=== PATIENT | female | born 1995 | race Caucasian/White ===

== ENCOUNTER 2022-01-27 14:54 | Outpatient (CLI) | payer BC | END 2022-01-27 14:55 | disposition home or self-care (01) | LOC: CSHLAB 14:54 | PROVIDERS: ATTEND Obstetrics & Gynecology | DX: Z20.822 Contact with and (suspected) exposure to COVID-19 (principal) | CPT/HCPCS: 87811 ==

== ENCOUNTER 2022-01-29 13:24 | Inpatient (IN) | payer BC ==
[2022-01-31] MEDS ORDERED: Lidocaine 2% MPF 10 ML AMP (For Epidural Use) ONE (08:00)
[2022-01-31] MEDS ORDERED: Bupivacaine 0.25% HCL 30 ML VIAL ONE (08:00)
[2022-01-31] MEDS ORDERED: Lidocaine 1% (PF) 30 ML VIAL SC PRN (22:56)
[2022-01-31] MEDS ORDERED: Zolpidem Tartrate 5 MG TAB PO PRN (22:56)
[2022-01-31] MEDS ORDERED: Diphenoxylate HCl/Atropine Tablet PO PRN ×2 (22:56)
[2022-01-31] MEDS ORDERED: Butorphanol Tartrate 1 MG/ML VIAL SLOW IVP PRN (22:56)
[2022-01-31] MEDS ORDERED: HYDROcodone/Acetaminophen 5/325 mg Tablet PO PRN ×2 (22:56)
[2022-01-31] MEDS ORDERED: Promethazine HCl 25 MG/ML VIAL IM PRN (22:56)
[2022-01-31] MEDS ORDERED: Misoprostol 200 MCG TAB PR PRN (22:56)
[2022-01-31] MEDS ORDERED: Ondansetron PF 4 MG/2 ML Vial IVP PRN (22:56)
[2022-01-31] MEDS ORDERED: Ibuprofen 800 MG TAB PO PRN (22:56)
[2022-01-31] MEDS ORDERED: Lactated Ringer's 1,000 ML IV SCH (22:56)
[2022-01-31] MEDS ORDERED: NS w/ Oxytocin 30 units 500 ML IV SCH ×2 (22:56)
[2022-01-31] MEDS ORDERED: Docusate 100 MG CAP PO PRN (22:56)
[2022-01-31] MEDS ORDERED: Misoprostol 100 MCG TAB VAG SCH (22:56)
[2022-01-31] MEDS ORDERED: hydrALAZINE 20 MG/ML VIAL SLOW IVP PRN (22:56)
[2022-01-31] MEDS ORDERED: Acetaminophen 500 MG TAB PO PRN (22:56)
[2022-01-31] MEDS ORDERED: Penicillin G Potassium 5 MILL.UNITS in Sodium Chloride 0.9% 100 ML IVPB SCH (23:00)
[2022-01-31 23:01] VITALS: BMI 33.6
[2022-01-31 23:19] LABS: Mean Corpuscular HGB CONC 35.3 g/dL (32.0-36.0); Mean Corpuscular Hemoglobin 32.2 pg (27.0-33.0); Mean Corpuscular Volume 91.2 fl (81.6-98.3); Mean Platelet Volume 9.2 fl (7.4-10.4); Platelet Count 243 10x3/uL (150-450); RBC Distribution Width 13.7 % (11.5-14.5); Red Blood Cell (RBC) Count 3.73 10x6/uL (3.90-5.03); White Blood Cell (WBC) Count 8.7 10x3/uL (3.5-10.5)
[2022-02-01 00:01] LABS: Syphilis Antibody Nonreactive (Nonreactive); Syphilis Antibody Index 0.03 S/CO (<1.00 Non-Reactive)
[2022-02-01 00:03] LABS: HBSAg Index 0.26 S/CO (0-0.99); HIV (1/2) Antibody/Antigen Non-Reactive (NonReactive); HIV 1/2 INDEX 0.09 S/CO (<1.00); Hep B Surf Ag Non-Reactive S/CO (NonReactive)
[2022-02-01] MEDS: Misoprostol 100 MCG TAB VAG SCH ×2 (03:25→07:34)
[2022-02-01] MEDS: Penicillin G 2.5 MILL.units 2.5 MILL.UNITS in Premix Bag 1 BAG IVPB SCH ×4 (03:25→16:20)
[2022-02-01] MEDS ORDERED: Fentanyl 2 mcg/Bup 0.1% Cadd 100 ML ONE ×2 (09:32→15:47)
[2022-02-01] MEDS ORDERED: Promethazine HCl 25 MG/ML VIAL IM PRN (10:25)
[2022-02-01] MEDS ORDERED: ePHEDrine Sulfate 50 MG/10 ML VIAL SLOW IVP PRN (10:25)
[2022-02-01] MEDS ORDERED: Ondansetron PF 4 MG/2 ML Vial IVP PRN ×2 (10:25→21:47)
[2022-02-01] MEDS ORDERED: Acetaminophen 325 MG TAB PO PRN (10:25)
[2022-02-01] MEDS ORDERED: Moisturizing Cream (Eucerin) 113 GM JAR TOP PRN (10:25)
[2022-02-01] MEDS ORDERED: Naloxone HCl 0.4 mg/ml Vial IVP PRN ×2 (10:25)
[2022-02-01] MEDS ORDERED: Lactated Ringer's 500 ML IV PRN (10:25)
[2022-02-01] MEDS ORDERED: diphenhydrAMINE 50 MG/ML VIAL IVP PRN (10:25)
[2022-02-01] MEDS ORDERED: Communication Order-Pharmacy FS SCH (10:30)
[2022-02-01] MEDS ORDERED: Fentanyl 2 mcg/Bupivacaine 0.1% Cassette 100 ML EPIDURAL SCH (10:30)
[2022-02-01] MEDS ORDERED: Tranexamic Acid 1,000 MG/10 ML VIAL ONE (21:23)
[2022-02-01] MEDS ORDERED: Methylergonovine 0.2 MG/ML VIAL ONE (21:23)
[2022-02-01] MEDS ORDERED: Misoprostol 200 MCG TAB ONE (21:23)
[2022-02-01] MEDS ORDERED: Carboprost 250 MCG/ML AMP ONE (21:23)
[2022-02-01] MEDS ORDERED: HYDROcodone/Acetaminophen 5/325 mg Tablet PO PRN (21:47)
[2022-02-01] MEDS ORDERED: Misoprostol 200 MCG TAB VAG PRN (21:47)
[2022-02-01] MEDS ORDERED: Lanolin Ointment 7 GM TUBE TOP PRN (21:47)
[2022-02-01] MEDS ORDERED: Benzocaine-Menthol 82.5 ML CAN TOP PRN (21:47)
[2022-02-01] MEDS ORDERED: Preparation H Ointment 28 GM TUBE PR PRN (21:47)
[2022-02-01] MEDS ORDERED: hydrALAZINE 20 MG/ML VIAL SLOW IVP PRN (21:47)
[2022-02-01] MEDS ORDERED: diphenhydrAMINE 25 MG CAP PO PRN (21:47)
[2022-02-01] MEDS ORDERED: Milk Of Magnesia 30 ML UDCUP PO PRN (21:47)
[2022-02-01] MEDS ORDERED: Bisacodyl 10 MG SUPP PR PRN (21:47)
[2022-02-01] MEDS ORDERED: Witch Hazel-Glycerin 1 EACH JAR TOP PRN (21:49)
[2022-02-01] MEDS ORDERED: NS w/ Oxytocin 30 units 500 ML IV SCH (22:00)
[2022-02-02] MEDS: Ibuprofen 800 MG TAB PO SCH ×3 (01:12→16:02)
[2022-02-02 04:50] LABS: Hemoglobin 12.3 g/dL (12.0-15.5); Mean Corpuscular Hemoglobin 32.1 pg (27.0-33.0); Mean Corpuscular Volume 91.6 fl (81.6-98.3); Mean Platelet Volume 9.4 fl (7.4-10.4); Platelet Count 259 10x3/uL (150-450); RBC Distribution Width 13.8 % (11.5-14.5); Red Blood Cell (RBC) Count 3.83 10x6/uL (3.90-5.03); White Blood Cell (WBC) Count 20.2 10x3/uL (3.5-10.5)
[2022-02-02] MEDS: HYDROcodone/Acetaminophen 5/325 mg Tablet PO PRN ×3 (04:54→20:47)
[2022-02-02] MEDS: Docusate 100 MG CAP PO SCH ×2 (08:40→20:46)
[2022-02-02] MEDS: Prenatal Vitamin 1 TAB PO SCH (08:40)
[2022-02-02] MEDS ORDERED: Boostrix 0.5 ML (Tdap) VIAL IM ONE (09:00)
[2022-02-02] MEDS: Ferrous Sulfate 325 MG TAB PO SCH ×2 (13:41→17:05)
[2022-02-03] MEDS: Ibuprofen 800 MG TAB PO SCH ×4 (00:01→16:05)
[2022-02-03 08:09] VITALS: BP 103/62; TEMP 98.3
[2022-02-03] MEDS: Prenatal Vitamin 1 TAB PO SCH (08:49)
[2022-02-03] MEDS: Docusate 100 MG CAP PO SCH (08:49)
[2022-02-03] MEDS: Ferrous Sulfate 325 MG TAB PO SCH (09:26)
== END 2022-02-03 16:15 | disposition home or self-care (01) | DRG 807 ==
LOC: CSHLD 01-31 22:35 → CSHPP 02-02 00:10
PROVIDERS: ADMIT Obstetrics & Gynecology; ATTEND Obstetrics & Gynecology
PROC: 10D07Z6 Extraction of Products of Conception, Vacuum, Via Natural or Artificial Opening (ICD-10-PCS; principal; 2022-02-01)
PROC: 0KQM0ZZ Repair Perineum Muscle, Open Approach (ICD-10-PCS; 2022-02-01)
PROC: 3E0P7VZ Introduction of Hormone into Female Reproductive, Via Natural or Artificial Opening (ICD-10-PCS; 2022-02-01)
PROC: 0W8NXZZ Division of Female Perineum, External Approach (ICD-10-PCS; 2022-02-01)
DX: O99.824 Streptococcus B carrier state complicating childbirth (principal); Z37.0 Single live birth; Z3A.39 39 weeks gestation of pregnancy; Z86.16 Personal history of COVID-19; G43.909 Migraine, unspecified, not intractable, without status migrainosus; O99.354 Diseases of the nervous system complicating childbirth; Z79.82 Long term (current) use of aspirin; O76 Abnormality in fetal heart rate and rhythm complicating labor and delivery; O70.1 Second degree perineal laceration during delivery; O42.02 Full-term premature rupture of membranes, onset of labor within 24 hours of rupture; O32.8XX0 Maternal care for other malpresentation of fetus, not applicable or unspecified; O72.1 Other immediate postpartum hemorrhage
CPT/HCPCS: 36415; 51702; 85027; 86780; 86850; 86900; 86901; 87340; 87389; J2540; J2590; J3490; J7120; S0020